=== PATIENT | male | born 1995 | race African-American/Black ===

== ENCOUNTER 2017-06-10 14:36 | Emergency (ER) | payer OTHER ==
[~2017-06-10] VITALS: Ht 188 cm; Wt 113.7 kg
[2017-06-10 14:47] VITALS: BP 154/93
== END 2017-06-10 16:13 | disposition home or self-care (01) ==
LOC: ED 16:07
DX: B65.9 Schistosomiasis, unspecified (principal); G43.909 Migraine, unspecified, not intractable, without status migrainosus
CPT/HCPCS: 36415; 86682; 99283